=== PATIENT | male | born 1990 | race Caucasian/White ===

== ENCOUNTER 2023-08-03 23:47 | Emergency (ER) | payer OTHER ==
[~2023-08-03] VITALS: Ht 177.8 cm; Wt 72.6 kg
[2023-08-03 23:50] VITALS: BP 99/64; PULSE 59; RESP 16; TEMP 96.9; O2SAT 99
[2023-08-04 00:01] VITALS: O2SAT 99
[2023-08-04] MEDS: IBUPROFEN 600 MG TAB PO ONE (01:26)
[2023-08-04] MEDS ORDERED: NAPR-337 PO (01:35)
== END 2023-08-04 01:46 | disposition home or self-care (01) ==
LOC: MED 23:47
DX: S83.8X1A Sprain of other specified parts of right knee, initial encounter (principal); Z79.899 Other long term (current) drug therapy; W01.198A Fall on same level from slipping, tripping and stumbling with subsequent striking against other object, initial encounter; Y93.89 Activity, other specified; Y92.89 Other specified places as the place of occurrence of the external cause; Y99.8 Other external cause status
CPT/HCPCS: 73562; 99283; Q0092